=== PATIENT | male | born 1955 ===

== ENCOUNTER 2017-11-21 10:35 | Emergency (ER) | payer SELFPAY ==
[2017-11-21 11:47] VITALS: BP 150/79
--- NOTE | 2017-11-21 12:23 | UC ---
UC General HPI - HPI Summary HPI Summary: fatigue x 2 days been very tired and sleepy no cold symptoms, no chest pain , no n/v/d/c , no urinary sx no sob sore on his tongue - History of Current Complaint Chief Complaint: UCGeneralIllness Stated Complaint: EXTREME FATIGUE,MOUTH COMPLAINT Time Seen by Provider: 11/21/17 11:27 Hx Obtained From: Patient Onset/Duration: Gradual Onset, Lasting Days - 2, Still Present Timing: Constant Onset Severity: Moderate Current Severity: Moderate Pain Intensity: 3 - Allergy/Home Medications Allergies/Adverse Reactions: Allergies Allergy/AdvReac Type Severity Reaction Status Date / Time No Known Allergies Allergy Verified 11/21/17 11:17 Home Medications: Home Medications Aspirin [Aspir-Low] 81 mg PO DAILY 11/21/17 [History Confirmed 11/21/17] Losartan TAB* [Cozaar TAB*] 50 mg PO DAILY 11/21/17 [History Confirmed 11/21/17] PMH/Surg Hx/FS Hx/Imm Hx Cardiovascular History: Hypertension - Surgical History Surgical History: Yes Surgery Procedure, Year, and Place: left inguinal 2015 [facility] - Social History Alcohol Use: Occasionally Substance Use Type: Marijuana Substance Use Comment - Amount & Last Used: 11/16/17 Smoking Status (MU): Former Smoker Review of Systems Constitutional: Fatigue Skin: Negative Eyes: Negative ENT: Negative Respiratory: Negative Cardiovascular: Negative Gastrointestinal: Negative Genitourinary: Negative Neurological: Weakness Is Patient Immunocompromised?: No All Other Systems Reviewed And Are Negative: Yes Physical Exam Triage Information Reviewed: Yes Appearance: Well-Appearing, No Pain Distress, Well-Nourished Vital Signs: Initial Vital Signs Temp 98.5 F 11/21/17 11:24 Pulse 94 11/21/17 11:24 Resp 20 11/21/17 11:24 BP 150/79 11/21/17 11:24 Pulse Ox 99 11/21/17 11:24 Vital Signs Reviewed: Yes Eye Exam: Normal Eyes: Positive: Conjunctiva Clear ENT Exam: Normal ENT: Positive: Normal ENT inspection, Hearing grossly normal, Pharynx normal, Other - ulceration of the tongue Neck exam: Normal Neck: Positive: Supple, Nontender, No Lymphadenopathy Respiratory: Positive: Chest non-tender, Lungs clear, Normal breath sounds Cardiovascular: Positive: RRR, No Murmur, Pulses Normal Abdominal Exam: Normal Abdomen Description: Positive: Nontender, No Organomegaly, Soft. Negative: CVA Tenderness (R), CVA Tenderness (L), Distended, Guarding Bowel Sounds: Positive: Present Neurological: Positive: Alert, Muscle Tone Normal Skin Exam: Normal Course/Dx - Course Course Of Treatment: will check cbc, cmp. call the pt. with the results - Differential Dx - Multi-Symptom Provider Diagnoses: fatigue Discharge - Discharge Plan Condition: Good Disposition: HOME Patient Education Materials: Fatigue (ED) Referrals: Misty Montano NP [Primary Care Provider] - 2 Days Additional Instructions: will check cbc, cmp please call the office tomorrow for the results please go to ED if getting worse
[2017-11-21 19:06] LABS: ABS Basophils 0 10^3/ul (0-0.2); ABS Eosinophils 0.1 10^3/ul (0-0.6); ABS Lymphocytes 1.4 10^3/ul (1.0-4.8); ABS Neutrophils 10.4 10^3/ul (1.5-7.7); ABS Nucleated RBC 0 10^3/ul; Eosinophil % 0.7 % (0-6); Hematocrit 42 % (42-52); Hemoglobin 14.1 g/dl (14.0-18.0); Lymphocyte % 10.5 % (25-47); Mean Corpuscular HGB Conc 34 g/dl (31-36); Mean Corpuscular Hemoglobin 30 pg (27-31); Mean Corpuscular Volume 90 fL (80-94); Mean Platelet Volume 8 um3 (7.4-10.4); Nucleated Red Blood Cells % 0; Platelet Count 226 10^3/ul (150-450); Red Blood Count 4.62 10^6/ul (4.0-5.4); Red Cell Distribution Width 13 % (10.5-15); White Blood Count 12.9 10^3/ul (3.5-10.8)
[2017-11-21 19:36] LABS: EGFR Non-African American 78.9 (>60)
== END 2017-11-21 12:26 | disposition home or self-care (01) ==
LOC: UCCORT 10:35
DX: R53.83 Other fatigue (principal); I10 Essential (primary) hypertension; Z87.891 Personal history of nicotine dependence
CPT/HCPCS: 36415; 80053; 81003; 85025; 93005; 99201; G0463